=== PATIENT | male | born 1960 | race Caucasian/White ===

== ENCOUNTER → 2016-08-04 | Outpatient (CLI) | payer BC, OTHER ==
[~2016-08-04] VITALS: Ht 182.9 cm; Wt 97.5 kg
[~2016-08-04] MED LIST: AMBI10TA PO; AMIT25TA10 PO; ATOR1TAB19 PO; BACL10TA2 PO; CLEO300C2 PO; CYMB1CAP5 PO; FLON0.054; FLUTISP; GABA300C2 PO; HYDR7.5T38 PO; IBUP600T26 PO; IBUPOTC PO; LIDOCAINE 2% INJ 100 MG/5 ML SDV (FOR ANES.) As Ordered ONE; LIPI20TA PO; LISI10TA4 PO; LISI5TAB PO; LYRI75CA PO; MIRA3350 PO; MS C15TA2 PO; MSIR PO; MULTTAB50 PO; NS 1,000 ML IV SCH; PERC5TAB6 PO; PREVASTAIN PO; PRIL40CA PO; PROBCAP4 PO; PROPOFOL 200 MG/20 ML VIAL As Ordered ONE; TERB250T64 PO; TPS CREAM TOP; TRAM50TA2 PO; TRAMADOL PO; VOLT1GEL2 TD; VOLT1GEL24 TD; XARE15TA PO; XARE20TA PO; ZOCO20TA PO
--- NOTE | 2016-08-04 11:16 | ROOR ---
Patient Name: Guille Akins Procedure Date: 08/04/2016 11:01 AM Date of : 1960 Age: 55 Room: [facility] Gender: Male Note Status: Finalized Procedure: Upper GI endoscopy Indications: Epigastric abdominal pain Providers: Harsha Soliz Jr, MD Referring MD: RAMSES HER MD Requesting Provider: Medicines: Propofol per Anesthesia Complications: No immediate complications. Procedure: Pre-Anesthesia Assessment: - Prior to the procedure, a History and Physical was performed, and patient medications and allergies were reviewed. The patient is competent. The risks and benefits of the procedure and the sedation options and risks were discussed with the patient. All questions were answered and informed consent was obtained. Patient identification and proposed procedure were verified by the physician and the nurse in the pre-procedure area and in the procedure room. Mental Status Examination: alert and oriented. Airway Examination: normal oropharyngeal airway and neck mobility. Respiratory Examination: clear to auscultation. CV Examination: normal. ASA Grade Assessment: II - A patient with mild systemic disease. After reviewing the risks and benefits, the patient was deemed in satisfactory condition to undergo the procedure. The anesthesia plan was to use moderate sedation / analgesia (conscious sedation). Immediately prior to administration of medications, the patient was re-assessed for adequacy to receive sedatives. The heart rate, respiratory rate, oxygen saturations, blood pressure, adequacy of pulmonary ventilation, and response to care were monitored throughout the procedure. The physical status of the patient was re-assessed after the procedure. The Endoscope was introduced through the mouth, and advanced to the second part of duodenum. The upper GI endoscopy was accomplished without difficulty. The patient tolerated the procedure well. Findings: The upper third of the esophagus, middle third of the esophagus and lower third of the esophagus were normal. The cardia, gastric fundus, gastric body, gastric antrum, prepyloric region of the stomach and pylorus were normal. Patchy moderate inflammation characterized by congestion (edema), erythema, friability and granularity was found in the duodenal bulb. The first portion of the duodenum and second portion of the duodenum were normal. Impression: - Normal upper third of esophagus, middle third of esophagus and lower third of esophagus. - Normal cardia, gastric fundus, gastric body, antrum, prepyloric region of the stomach and pylorus. - Duodenitis. - Normal first portion of the duodenum and second portion of the duodenum. - No specimens collected. Recommendation: - Discharge patient to home (ambulatory). - Return to my office in 2 weeks. Harsha Soliz MD Harsha Soliz Jr, MD 08/04/2016 11:16:37 AM This report has been signed electronically. Number of Addenda: 0 Note Initiated On: 08/04/2016 11:01 AM Estimated Blood Loss: Estimated blood loss: none.
--- NOTE | 2016-08-04 11:36 | ROOR ---
Patient Name: Guille Akins Procedure Date: 08/04/2016 11:03 AM Date of : 1960 Age: 55 Room: [facility] Gender: Male Note Status: Finalized Procedure: Colonoscopy Indications: High risk colon cancer surveillance: Personal history of colonic polyps Providers: Harsha Soliz Jr, MD Referring MD: RAMSES HER MD Requesting Provider: Medicines: Propofol per Anesthesia Complications: No immediate complications. Procedure: Pre-Anesthesia Assessment: - Prior to the procedure, a History and Physical was performed, and patient medications and allergies were reviewed. The patient is competent. The risks and benefits of the procedure and the sedation options and risks were discussed with the patient. All questions were answered and informed consent was obtained. Patient identification and proposed procedure were verified by the physician and the nurse in the pre-procedure area and in the procedure room. Mental Status Examination: alert and oriented. Airway Examination: normal oropharyngeal airway and neck mobility. Respiratory Examination: clear to auscultation. CV Examination: normal. ASA Grade Assessment: II - A patient with mild systemic disease. After reviewing the risks and benefits, the patient was deemed in satisfactory condition to undergo the procedure. The anesthesia plan was to use moderate sedation / analgesia (conscious sedation). Immediately prior to administration of medications, the patient was re-assessed for adequacy to receive sedatives. The heart rate, respiratory rate, oxygen saturations, blood pressure, adequacy of pulmonary ventilation, and response to care were monitored throughout the procedure. The physical status of the patient was re-assessed after the procedure. The Colonoscope was introduced through the anus and advanced to the cecum, identified by appendiceal orifice and ileocecal valve. The colonoscopy was performed without difficulty. The patient tolerated the procedure well. The quality of the bowel preparation was adequate and good. Findings: The perianal and digital rectal examinations were normal. Pertinent negatives include normal sphincter tone, no palpable rectal lesions and no anal lesion or abnormality was detected. The recto-sigmoid colon, descending colon, transverse colon, ascending colon, appendiceal orifice and ileocecal valve appeared normal. Two polyps were found in the rectum and cecum. The polyps were small in size. These polyps were removed with a hot snare. Resection and retrieval were complete. A few small-mouthed diverticula were found in the sigmoid colon. Impression: - The recto-sigmoid colon, descending colon, transverse colon, ascending colon, appendiceal orifice and ileocecal valve are normal. - Two small polyps in the rectum and in the cecum, removed with a hot snare. Resected and retrieved. - Diverticulosis in the sigmoid colon. Recommendation: - Discharge patient to home (ambulatory). - Repeat colonoscopy in 5 years for surveillance. Harsha Soliz MD Harsha Soliz Jr, MD 08/04/2016 11:35:28 AM This report has been signed electronically. Number of Addenda: 0 Note Initiated On: 08/04/2016 11:03 AM Estimated Blood Loss: Estimated blood loss: none.
[2016-08-04 12:00] VITALS: BP 138/80
== END | disposition home or self-care (01) ==
LOC: M OPP 09:52
PROVIDERS: ATTEND Surgery
DX: Z12.11 Encounter for screening for malignant neoplasm of colon (principal); Z80.0 Family history of malignant neoplasm of digestive organs; K63.5 Polyp of colon; K62.1 Rectal polyp; K57.30 Diverticulosis of large intestine without perforation or abscess without bleeding; R10.13 Epigastric pain; K29.80 Duodenitis without bleeding; I10 Essential (primary) hypertension; I99.9 Unspecified disorder of circulatory system; E78.00 Pure hypercholesterolemia, unspecified; M19.90 Unspecified osteoarthritis, unspecified site; F33.9 Major depressive disorder, recurrent, unspecified; G47.30 Sleep apnea, unspecified; Z87.891 Personal history of nicotine dependence; Z79.899 Other long term (current) drug therapy; Z79.01 Long term (current) use of anticoagulants

== ENCOUNTER 2016-09-05 12:38 | Emergency (ER) | payer BC, OTHER ==
[~2016-09-05] VITALS: Ht 182.9 cm; Wt 97.5 kg
[~2016-09-05 12:38] MED LIST changes: -LIDOCAINE 2% INJ 100 MG/5 ML SDV (FOR ANES.) As Ordered ONE; -NS 1,000 ML IV SCH; -PROPOFOL 200 MG/20 ML VIAL As Ordered ONE
[2016-09-05] MEDS ORDERED: ZANT300T PO (12:52)
[2016-09-05 13:39] LABS: BASO % 0.7 % (0.0-1.0); EOS # 0.1 K/mm3 (0.0-0.50); EOS % 1.7 % (0.0-3.0); LARGE UNSTAINED CELL # 0.1 K/mm3 (0.0-0.4); LARGE UNSTAINED CELL % 1.4 % (0.0-4.0); LYMPH # 1.7 K/mm3 (1.5-4.5); LYMPH % 25.3 % (24.0-44.0); MEAN CORPUSCULAR HEMOGLOBIN 30.7 pg (27.0-33.0); MEAN CORPUSCULAR HGB CONC 33.9 g/dl (32.0-36.5); MEAN CORPUSCULAR VOLUME 90.7 fl (80.0-96.0); MONO # 0.3 K/mm3 (0.0-0.8); MONO % 4.5 % (0.0-5.0); NEUTROPHILS # 4.3 K/mm3 (1.8-7.7); NEUTROPHILS % 66.5 % (36.0-66.0); PLATELET COUNT, AUTOMATED 161 k/mm3 (150-450); RED CELL DISTRIBUTION WIDTH 11.9 % (11.5-14.5); WHITE BLOOD COUNT 6.5 K/mm3 (4.0-10.0)
[2016-09-05 13:54] LABS: ALBUMIN 4.1 GM/DL (3.2-5.2); ALBUMIN/GLOBULIN RATIO 1.41 (1.00-1.93); ALKALINE PHOSPHATASE 85 U/L (45-117); ALT/SGPT 36 U/L (12-78); ANION GAP 6 MEQ/L (8-16); AST/SGOT 23 U/L (15-37); BILIRUBIN,DIRECT 0.1 MG/DL (0.0-0.2); BILIRUBIN,TOTAL 0.4 MG/DL (0.2-1.0); BLOOD UREA NITROGEN 20 MG/DL (7-18); CARBON DIOXIDE LEVEL 29 MEQ/L (21-32); CHLORIDE LEVEL 106 MEQ/L (98-107); CREATININE FOR GFR 0.94 MG/DL (0.70-1.30); GLOMERULAR FILTRATION RATE > 60.0 (>56); GLUCOSE, FASTING 106 MG/DL (70-105); POTASSIUM SERUM 3.9 MEQ/L (3.5-5.1); SODIUM LEVEL 141 MEQ/L (136-145)
--- NOTE | 2016-09-05 14:07 | REP ---
PORTABLE CHEST X-RAY: SINGLE VIEW. HISTORY: Chest pain. Comparison study . FINDINGS: The lungs are symmetrically aerated and free of infiltrate. Pleural angles are sharp. Heart size is normal. Pulmonary vasculature is not increased. EKG electrodes are seen. IMPRESSION: Negative portable chest x-ray. Signed by Elmo Blackmon MD 09/05/2016 06:26 P
[2016-09-05] MEDS ORDERED: ISOVUE-370 76% 100ML VIAL (Q9967) As Ordered ONE (14:41)
--- NOTE | 2016-09-05 15:12 | REP ---
CT pulmonary angiogram: With IV contrast. History: Pleuritic pain, known history of pulmonary embolus. Comparison studies: February 18, 2015 Contrast dose: 75 cc's of Isovue [address] technique: Helical scanning is acquired and overlapping 1.5 mm and contiguous 3 mm axial images are reformatted. In addition, a 3-D work station is deployed to generate thick slab maximum intensity projection images in sagittal and coronal imaging projections. CT pulmonary angiographic findings: There is good opacification of the pulmonary arterial tree and there is no CT evidence of pulmonary embolism. Thoracic aorta enhances homogeneously and is normal in course and caliber. No evidence of dissection or aneurysm. There is no evidence of hilar or mediastinal mass or adenopathy. No pleural or pericardial effusion is seen. No adrenal abnormalities observed. The lung groves show no evidence of pulmonary mass, infiltrate or atelectasis. Maximum intensity projection images show no vessel cutoff or filling defect. Impression: Negative CT pulmonary angiogram. No CT evidence of pulmonary embolus. Signed by Elmo Blackmon MD 09/05/2016 06:27 P
[2016-09-05 16:18] VITALS: BP 159/94
--- NOTE | 2016-09-05 17:27 | REP ---
Left lower extremity duplex venous ultrasound: History: Pain. Prior DVT. Comparison study is from 11/17/2014. This showed nonocclusive thrombus in the left popliteal vein. Today's sonographic findings: The left femoral vein and left common femoral vein segments are anechoic on two-dimensional scanning and fully compressible on compression. Color flow and spectral Doppler interrogation are intact. There is however echogenic material and lack of complete compressibility in the popliteal vein. Partial filling of the vein lumen on color Doppler interrogation is seen. The disease is less extensive than on the findings from the 11/17/2014 study. No other evidence of deep venous thrombosis. Impression: Abnormal study. Echogenic nonocclusive DVT in a short segment of the left popliteal vein, question chronic DVT. Otherwise negative. Signed by Elmo Blackmon MD 09/05/2016 06:28 P
--- NOTE | 2016-09-06 04:58 | ECGEPIP ---
Stationary ECG Study [facility] [place] - ED Test Date: 2016-09-05 Pat Name: HAROON CORNEJO Department: Room: - Gender: M [employer] Manager: ALDEN : 1960 Requested By: Rivera Gonzalez Order Number: [id number] Reading MD: Rivrea Freire Measurements Intervals [place] Rate: 64 P: 46 NE: 195 QRS: -22 QRSD: 129 T: 32 QT: 395 QTc: 409 Interpretive Statements SINUS RHYTHM BORDERLINE LEFT AXIS DEVIATION INC. RBBB MINIMAL VOLTAGE CRITERIA FOR LVH, CONSIDER NORMAL VARIANT SIMILAR TO 11/17/14 Electronically Signed On 09-06-2016 4:58:20 EDT by Rivera Freire
== END 2016-09-05 16:44 | disposition home or self-care (01) ==
LOC: M ED 14:13
DX: R07.9 Chest pain, unspecified (principal)
CPT/HCPCS: 71010; 71275; 80048; 80076; 82550; 82553; 83690; 84443; 85025; 93005; 93041; 93971; 94760; 99285; Q9967

== ENCOUNTER → 2018-09-13 | Outpatient (CLI) | payer BC, OTHER ==
[~2018-09-13] MED LIST changes: +FLUT1SPR2; -FLUTISP; +IBUP-1022 PO; -IBUP600T26 PO; -MS C15TA2 PO; +MS C15TA8 PO; +PERC5TAB12 PO; -PERC5TAB6 PO; +VOLT1GEL15 TD; -VOLT1GEL24 TD; +ZANT300T9 PO
--- NOTE | 2018-09-13 11:03 | REP ---
Right thumb series: Four views. History: Contusion. Findings: Four views of the right thumb demonstrate osteoarthritis at the first carpometacarpal joint as well as spurring at the IP joint. There is some diffuse soft tissue swelling. No fracture is seen. Impression: Osteoarthritic changes. No fracture noted. Electronically Signed by Elmo Blackmon MD 09/13/2018 10:54 A
--- NOTE | 2018-09-13 11:24 | REP ---
Left wrist series: Four views. History: Contusion. Findings: Four views of the left wrist show normal bones, joints and soft tissues. No evidence of fracture or subluxation is seen. Impression: Negative radiographs of the left wrist. Electronically Signed by Elmo Blackmon MD 09/13/2018 12:31 P
== END ==
LOC: M WUC 10:27
PROVIDERS: ATTEND Physician Assistant
DX: M25.532 Pain in left wrist (principal); M18.12 Unilateral primary osteoarthritis of first carpometacarpal joint, left hand; M25.742 Osteophyte, left hand

== ENCOUNTER → 2018-10-01 | Outpatient (REF) | payer OTHER ==
[2018-10-01 13:02] LABS: BASO # 0.1 10^3/uL (0.0-0.2); EOS # 0.2 10^3/uL (0.0-0.50); EOS % 3.8 % (0.0-3.0); HEMATOCRIT 42.1 % (42.0-52.0); HEMOGLOBIN 13.8 g/dl (13.5-17.5); LYMPH # 1.8 10^3/uL (1.5-4.5); MEAN CORPUSCULAR HEMOGLOBIN 30.6 pg (27.0-33.0); MEAN CORPUSCULAR HGB CONC 32.8 g/dl (32.0-36.5); MEAN CORPUSCULAR VOLUME 93.3 fl (80.0-96.0); MONO # 0.4 10^3/uL (0.0-0.8); MONO % 6.9 % (0.0-5.0); NEUTROPHILS # 3.7 10^3/uL (1.8-7.7); PLATELET COUNT, AUTOMATED 168 10^3/uL (150-450); RED BLOOD COUNT 4.51 10^6/uL (4.30-6.10); WHITE BLOOD COUNT 6.2 10^3/uL (4.0-10.0)
[2018-10-01 13:49] LABS: C REACTIVE PROTEIN QUANTITATIV < 0.30 MG/DL (0.00-0.30); ERYTHROCYTE SEDIMENTATION RATE 8 mm/hr (0-20); RHEUMATOID FACTOR QUANT < 10.0 IU/ML (<15.0)
[2018-10-03 00:06] LABS: ANTINUCLEAR ANTIBODIES DIRECT Negative (Negative); Lyme Disease IgG/IgM Antibodie <0.91 ISR (0.00-0.90); Lyme Disease IgM Ab Quantitati <0.80 index (0.00-0.79)
== END ==
LOC: M LABDRAW1 11:56
PROVIDERS: ATTEND Physician Assistant Surgical
DX: S63.92XA Sprain of unspecified part of left wrist and hand, initial encounter (principal); Y93.9 Activity, unspecified; Y92.9 Unspecified place or not applicable

== ENCOUNTER → 2019-04-25 | Outpatient (REF) | payer OTHER | LOC: M LAB REF 12:18 | PROVIDERS: ATTEND Physician Assistant | DX: R05 Cough (principal); R50.9 Fever, unspecified ==

== ENCOUNTER → 2019-05-21 | Outpatient (CLI) | payer OTHER ==
[2019-05-21 13:24] LABS: BASO # 0.1 10^3/uL (0.0-0.2); BASO % 0.8 % (0.0-1.0); EOS # 0.3 10^3/uL (0.0-0.5); EOS % 4.5 % (0.0-3.0); HEMATOCRIT 45.7 % (42.0-52.0); HEMOGLOBIN 14.8 g/dl (13.5-17.5); LYMPH # 1.9 10^3/uL (1.5-5.0); LYMPH % 29.1 % (24.0-44.0); MEAN CORPUSCULAR HGB CONC 32.4 g/dl (32.0-36.5); MEAN CORPUSCULAR VOLUME 95.6 fl (80.0-96.0); MONO # 0.6 10^3/uL (0.0-0.8); MONO % 9.5 % (0.0-5.0); NEUTROPHILS # 3.7 10^3/uL (1.5-8.5); NEUTROPHILS % 55.6 % (36.0-66.0); PLATELET COUNT, AUTOMATED 166 10^3/uL (150-450); RED BLOOD COUNT 4.78 10^6/uL (4.30-6.10); WHITE BLOOD COUNT 6.7 10^3/uL (4.0-10.0)
[2019-05-21 14:06] LABS: ERYTHROCYTE SEDIMENTATION RATE 7 mm/hr (0-20)
[2019-05-21 14:07] LABS: ALBUMIN 3.8 GM/DL (3.2-5.2); ALT/SGPT 46 U/L (12-78); BILIRUBIN,TOTAL 0.4 MG/DL (0.2-1.0); BLOOD UREA NITROGEN 19 MG/DL (7-18); CALCIUM LEVEL 9.1 MG/DL (8.5-10.1); CARBON DIOXIDE LEVEL 28 MEQ/L (21-32); CHLORIDE LEVEL 106 MEQ/L (98-107); GLOMERULAR FILTRATION RATE > 60.0 (>56); GLUCOSE, FASTING 91 MG/DL (70-100); POTASSIUM SERUM 4.3 MEQ/L (3.5-5.1); RHEUMATOID FACTOR QUANT < 10.0 IU/ML (<15.0); SODIUM LEVEL 141 MEQ/L (136-145); TOTAL 25(OH) VITAMIN D 26.7 NG/ML (30.0-100.0); VITAMIN B12 LEVEL 287 PG/ML (247-911)
[2019-05-24 08:33] LABS: ALBUMIN 4.59 GM/DL (3.29-5.55); ALBUMIN % 65.5 % (55.8-66.1); ALPHA-1-GLOBULIN % 3.3 % (2.9-4.9); ALPHA-1-GLOBULINS 0.23 GM/DL (0.17-0.41); BETA-1-GLOBULINS % 5.7 % (4.7-7.2); BETA-2-GLOBULINS % 6.2 % (3.2-6.5); GAMMA GLOBULIN % 11.3 % (11.1-18.8)
[2019-05-24 08:34] LABS: ALPHA-2-GLOBULINS 0.56 GM/DL (0.42-0.99); BETA-2-GLOBULINS 0.43 GM/DL (0.19-0.55); GAMMA GLOBULINS 0.79 GM/DL (0.65-1.58)
[2019-05-28 11:08] LABS: DRVV SCREEN 99.8 SEC
[2019-05-28 11:12] LABS: PTT LUPUS TYPE ANTICOAG SCREEN 2.4 (0-1.2)
[2019-05-28 11:22] LABS: DRVV CONFIRM 83.4 SEC; LUPUS CONFIRM RATIO 2.2
[2019-05-28 11:23] LABS: NORMALIZED RATIO 1.09 (0.00-1.20)
[2019-05-30 00:06] LABS: ANCA-ATYPICAL <1:20 titer (Neg:<1:20); ANTI DS-DNA AB Negative (Negative); ANTINUCLEAR ANTIBODIES DIRECT Negative (Negative); CYTOPLASMIC NEUTROP AB ANCA-C <1:20 titer (Neg:<1:20); PERINUCLEAR AB ANCA-P <1:20 titer (Neg:<1:20); SJOGREN'S ANTI SS-A <0.2 AI (0.0-0.9); SJOGREN'S ANTI SS-B <0.2 AI (0.0-0.9); VITAMIN B1 LEVEL WHOLE BLOOD 140.8 nmol/L (66.5-200.0); VITAMIN B6,PYRIDOXAL PHOSPHATE 33.5 ug/L (5.3-46.7); VITAMIN E(ALPHA TOCOPHEROL) 14.6 mg/L (7.0-25.1); VITAMIN E(GAMMA TOCOPHEROL) 1.6 mg/L (0.5-5.5)
== END ==
LOC: M WUC 09:26
PROVIDERS: ATTEND Psychiatry & Neurology Neurology
DX: G62.9 Polyneuropathy, unspecified (principal); R41.89 Other symptoms and signs involving cognitive functions and awareness

== ENCOUNTER → 2020-12-05 | Outpatient (CLI) | payer OTHER ==
[~2020-12-05] MED LIST changes: +CETI10CH PO; +DULO1CAP5 PO; +LISI-898 PO; +LISI10TA22 PO; -LISI10TA4 PO; +OMEP-221 PO; +TAMS1CAP17 PO; +VITA100T15 PO
== END ==
LOC: M LABSMTC 09:03
PROVIDERS: ATTEND Anesthesiology
DX: Z01.812 Encounter for preprocedural laboratory examination (principal); Z11.52 Encounter for screening for COVID-19

== ENCOUNTER 2020-12-10 11:29 | Day surgery (SDC) | payer BC, OTHER ==
[~2020-12-10] VITALS: Ht 182.9 cm; Wt 99.8 kg
[~2020-12-10 11:29] MED LIST changes: +NS 1,000 ML IV ONE
[2020-12-10] MEDS ORDERED: propofoL 500 MG/50 ML VIAL As Ordered ONE (12:52)
[2020-12-10] MEDS ORDERED: propofoL 200 MG/20 ML VIAL As Ordered ONE (12:52)
[2020-12-10] MEDS ORDERED: LIDOCAINE 2% 100MG/5ML SDV (FOR ANES.) As Ordered ONE (12:52)
--- NOTE | 2020-12-10 12:57 | ROOR ---
Patient Name: Guille Akins Procedure Date: 12/10/2020 12:39 PM Date of : 1960 Age: 60 Room: [facility] Gender: Male Note Status: Finalized Procedure: Colonoscopy Indications: Screening patient at increased risk: Family history of 1st-degree relative with colorectal cancer at age 60 years (or older), High risk colon cancer surveillance: Personal history of colonic polyps Providers: Harsha Soliz Jr, MD Referring MD: RAMSES HER MD Requesting Provider: Medicines: Propofol per Anesthesia Complications: No immediate complications. Procedure: Pre-Anesthesia Assessment: - Prior to the procedure, a History and Physical was performed, and patient medications and allergies were reviewed. The patient is competent. The risks and benefits of the procedure and the sedation options and risks were discussed with the patient. All questions were answered and informed consent was obtained. Patient identification and proposed procedure were verified by the physician and the nurse in the pre-procedure area and in the procedure room. Mental Status Examination: alert and oriented. Airway Examination: normal oropharyngeal airway and neck mobility. Respiratory Examination: clear to auscultation. CV Examination: normal. ASA Grade Assessment: II - A patient with mild systemic disease. After reviewing the risks and benefits, the patient was deemed in satisfactory condition to undergo the procedure. The anesthesia plan was to use moderate sedation / analgesia (conscious sedation). Immediately prior to administration of medications, the patient was re-assessed for adequacy to receive sedatives. The heart rate, respiratory rate, oxygen saturations, blood pressure, adequacy of pulmonary ventilation, and response to care were monitored throughout the procedure. The physical status of the patient was re-assessed after the procedure. The Colonoscope was introduced through the anus and advanced to the cecum, identified by appendiceal orifice and ileocecal valve. The colonoscopy was performed without difficulty. The patient tolerated the procedure well. The quality of the bowel preparation was adequate. Findings: The rectum, recto-sigmoid colon, descending colon, transverse colon, ascending colon, cecum, appendiceal orifice and ileocecal valve appeared normal. Multiple small-mouthed diverticula were found in the sigmoid colon. Impression: - The rectum, recto-sigmoid colon, descending colon, transverse colon, ascending colon, cecum, appendiceal orifice and ileocecal valve are normal. - Diverticulosis in the sigmoid colon. - No specimens collected. Recommendation: - Discharge patient to home (ambulatory). - Repeat colonoscopy in 5 years for screening purposes. Procedure Code(s): --- Professional --- 22857, Colonoscopy, flexible; diagnostic, including collection of specimen(s) by brushing or washing, when performed (separate procedure) Diagnosis Code(s): --- Professional --- Z80.0, Family history of malignant neoplasm of digestive organs Z86.010, Personal history of colonic polyps K57.30, Diverticulosis of large intestine without perforation or abscess without bleeding CPT copyright 2019 [employer]. All rights reserved. The codes documented in this report are preliminary and upon research food technologist review may be revised to meet current compliance requirements. Harsha Soliz MD Harsha Soliz Jr, MD 12/10/2020 12:56:42 PM Electronically signed by Harsha Soliz Jr, MD Number of Addenda: 0 Note Initiated On: 12/10/2020 12:39 PM Estimated Blood Loss: Estimated blood loss: none.
[2020-12-10 13:20] VITALS: BP 147/85
== END 2020-12-10 13:28 | disposition home or self-care (01) ==
LOC: M OPP 11:29
PROVIDERS: ATTEND Surgery
DX: Z12.11 Encounter for screening for malignant neoplasm of colon (principal); Z86.010 Personal history of colon polyps; Z80.0 Family history of malignant neoplasm of digestive organs; K21.9 Gastro-esophageal reflux disease without esophagitis; D53.0 Protein deficiency anemia; K57.30 Diverticulosis of large intestine without perforation or abscess without bleeding; G47.30 Sleep apnea, unspecified; Z79.891 Long term (current) use of opiate analgesic; Z79.899 Other long term (current) drug therapy; Z91.013 Allergy to seafood